=== PATIENT | male | born 1995 | race Caucasian/White ===

== ENCOUNTER → 2021-02-14 | Outpatient (CLI) | payer BC, OTHER ==
--- NOTE | 2021-02-14 12:56 | REP ---
INDICATION: DISC LIKE SYMPTOMS. COMPARISON: None. TECHNIQUE: Sagittal T1, T2, STIR, axial T1 and T2 weighted MR images of the lumbar spine are acquired. FINDINGS: There is minimal degenerative disc disease. Vertebral heights and disc heights are preserved. Disc signals are preserved. On the sagittal T2 weighted images, no significant canal stenosis. Conus ends normally at L1 level. On the review of axial images, At L1-2 no significant canal or foraminal narrowing. At L2-3 and L3-4 mild diffuse disc bulging with mild canal narrowing and mild bilateral foraminal narrowing. At L4-5 and L5-S1 diffuse disc bulges with mild canal narrowing and mild bilateral foraminal narrowing. At L5-S1 is a small annular tear. IMPRESSION: Minimal degenerative disc disease. No significant canal or foraminal stenosis. No disc herniation identified. Small annular tear at L5-S1, otherwise essentially normal examination. <Electronically signed by Yaniv Schulz > 02/14/21 1033
== END ==
LOC: M RAD 11:21
PROVIDERS: ATTEND Chiropractor
DX: M54.42 Lumbago with sciatica, left side (principal); M99.03 Segmental and somatic dysfunction of lumbar region; G43.001 Migraine without aura, not intractable, with status migrainosus; M99.01 Segmental and somatic dysfunction of cervical region